=== PATIENT | male | born 1990 | race Caucasian/White ===

== ENCOUNTER 2016-10-08 11:50 | Emergency (ER) | payer BC ==
[2016-10-08] MEDS ORDERED: Albuterol 6.7 GM Inhaler INH ONE (13:13)
[2016-10-08] MEDS ORDERED: predniSONE 20 MG Tab PO ONE (13:13)
--- NOTE | 2016-10-08 13:21 | EDM.PDOC ---
ED HISTORY OF PRESENT ILLNESS - General Chief Complaint: Respiratory Problem Stated Complaint: [facility] Time Seen by Provider: 10/08/16 12:59 Source of Information: Reports: Patient History Limitations: Reports: No limitations - History of Present Illness INITIAL COMMENTS - FREE TEXT/NARRATIVE: Patient is 26-year-old male who presents to the ED via ambulance complaining of shortness of breath while at work. States while working outside he developed increasing shortness of breath. 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 States he was working in the cold air when this occurred. Ambulance was called and during transport to the ED patient received nebulizer treatment with some relief. SpO2 has been within normal limits. This past weekend he developed a upper respiratory infection that seemed to resolve except for a persistent nonproductive cough. He currently has some mild mild sinus congestion with rhinitis. Denies any fever/chills, chest pain, nausea/vomiting, shortness of breath currently, pain, or any additional complaints. 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 He is on no medications currently and has no additional pertinent past medical history. Denies smoking. Denies being around anybody with recent illnesses or exposure to any nauseous fumes. Timing/Duration: Reports: Resolved prior to arrival Severity: mild Location, General: Reports: chest Quality: Reports: Other (Tightness, wheezing, cough) Improves with: Reports: Medication (Albuterol inhaler) Worsens with: Reports: Other (Exertion) Context, General: Denies: Sick contact Associated Symptoms (General): Reports: cough, shortness of breath. 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) (Albuterol neb treatment) - Related Data Allergies/ADRs: Allergies Allergy/AdvReac Type Severity Reaction Status Date / Time No Known Allergies Allergy Verified 10/08/16 12:03 Home Meds: Home Meds Prednisone [IMW: predniSONE] 40 mg PO WITHBREAKFAST #10 tab 10/08/16 [Rx] Past Medical History - Past Surgical History HEENT Surgical History: Reports: Adenoidectomy, Tonsillectomy Musculoskeletal Surgical History: Reports: Other (see below) Other Musculoskeletal Surgeries/Procedures:: Right ankle 5 times surgery and left knee surgery Social & Family History - Tobacco Use Smoking Status *Q: Never Smoker Second Hand Smoke Exposure: No - Caffeine Use Caffeine Use: Reports: Soda - Recreational Drug Use Recreational Drug Use: No ED ROS GENERAL - Review of Systems Review Of Systems: See Below Constitutional: Denies: fever, chills, decreased appetite Respiratory: Reports: Shortness of Breath, Wheezing, Cough. Denies: Pleuritic Chest Pain, Sputum Cardiovascular: Reports: Dyspnea on exertion. Denies: Chest pain, Lightheadedness, Palpitations GI/Abdominal: Denies: Abdominal pain, Nausea, Vomiting Musculoskeletal: Denies: muscle pain Neurological: Denies: Dizziness ED EXAM, GENERAL - Physical Exam Exam: See Below Exam Limited By: No limitations General Appearance: alert, WD/WN, no apparent distress Eye Exam: bilateral eye: PERRL Ears: hearing grossly normal Ear Exam: bilateral ear: canal normal, TM normal Nose: normal inspection, normal mucosa, no blood Throat/Mouth: Normal inspection, Normal oropharynx, Normal voice, No airway compromise Head: atraumatic, normocephalic Neck: normal inspection, supple, non-tender, full range of motion. No: lymphadenopathy (L), lymphadenopathy (R) Respiratory/Chest: no respiratory distress, no accessory muscle use, wheezing ( Right and left upper lung hall) Cardiovascular: normal peripheral pulses, regular rate, rhythm, no murmur GI/Abdominal: normal bowel sounds, soft, non tender, no organomegaly, no distention Extremities: non-tender, no pedal edema Neurological: alert, oriented, CN II-XII intact, normal cognition Psychiatric: normal affect, normal mood Skin Exam: Warm, Dry, Intact, Normal color, No rash Course - Vital Signs Last Recorded V/S: Last Vital Signs Temp 97.8 F 10/08/16 11:56 Pulse 82 10/08/16 15:06 Resp 18 10/08/16 15:06 BP 134/78 10/08/16 15:06 Pulse Ox 97 10/08/16 15:06 - Orders/Labs/Meds Orders: Active Orders 24 hr Category Date Time Status RT Post Treatment Assessment [RC] Click To Edit Care 10/08/16 13:15 Active RT Pre-Treatment Assessment [RC] Click To Edit Care 10/08/16 13:15 Active Chest 2V [CR] Stat Exams 10/08/16 13:13 Taken Meds: Medications Discontinued Medications Generic Name Dose Route Start Last Admin Trade Name Margarita PRN Reason Stop Dose Admin Albuterol 1 gm 10/08/16 13:13 10/08/16 13:23 Proventil Hfa INH 10/08/16 13:14 2 puff ONETIME ONE Administration Prednisone 40 mg 10/08/16 13:13 10/08/16 13:23 Prednisone PO 10/08/16 13:14 40 mg ONETIME ONE Administration - Re-Assessments/Exams Free Text/Narrative Re-Assessment/Exam: Ordered albuterol inhaler, chest x-ray, and prednisone 40 mg by mouth. 10/08/16 13:18 10/08/16 14:48 reassessment, patient's shortness of breath that has drastically improved with the above therapies. Chest x-ray was reviewed with Dr. Paul with no acute findings noted. Will discharge patient home with prescription for prednisone and albuterol inhaler. Diagnosis bronchitis. Departure - Departure Time of Disposition: 14:49 Disposition: Home, Self-Care 01 Condition: good Clinical Impression: Bronchitis Prescriptions: Prednisone [IMW: predniSONE] 40 mg PO WITHBREAKFAST #10 tab Instructions: Acute Bronchitis, [id number] Referrals: PCP,None [Primary Care Provider] - Azucena Willoughby PA [Physician Submarine Cable Equipment Technician] - Forms: ED Department Discharge, Return to Work/School Form Additional Instructions: Diagnosis is bronchitis. Treatment consists of prednisone 40 mg for the next 5 days. Albuterol inhaler 1-2 puffs every 4 hours as needed for shortness of breath, cough, wheezing. Followup with a primary care provider at [facility] at conclusion of therapy if symptoms have not improved. Return back to the ED for any new or worsening symptoms. - My Orders Last 24 Hours: My Active Orders 10/08/16 13:13 Chest 2V [CR] Stat 10/08/16 13:15 RT Post Treatment Assessment [RC] Click To Edit RT Pre-Treatment Assessment [RC] Click To Edit - Assessment/Plan Last 24 Hours: My Active Orders 10/08/16 13:13 Chest 2V [CR] Stat 10/08/16 13:15 RT Post Treatment Assessment [RC] Click To Edit RT Pre-Treatment Assessment [RC] Click To Edit
[2016-10-08 17:55] VITALS: BP 134/78
--- NOTE | 2016-10-09 08:40 | CR ---
Chest: Two views of the chest were obtained. Comparison: No previous study. Heart size and mediastinum are normal. Lungs are clear. Bony structures are unremarkable. Impression: 1. Nothing acute is identified on two-view chest x-ray. Diagnostic code #1
== END 2016-10-08 15:06 | disposition home or self-care (01) ==
LOC: JD.ED 11:50
DX: J40 Bronchitis, not specified as acute or chronic (principal); Z98.890 Other specified postprocedural states
CPT/HCPCS: 71020; 94664; 99285; A9270; 99283